=== PATIENT | female | born 1975 | race Caucasian/White ===

== ENCOUNTER 2017-12-25 23:53 | Emergency (ER) | payer OTHER ==
[~2017-12-25] VITALS: Ht 154.9 cm; Wt 96.2 kg
[2017-12-25 23:59] VITALS: Ht 154.9 cm; Wt 96.2 kg
[2017-12-26 02:58] LABS: BASOPHIL % 0.3 % (0-2); PLATELET COUNT 278 x10^3mcL (130-400)
[2017-12-26 03:00] LABS: CALCIUM 8.6 mg/dL (8.5-10.1); CARBON DIOXIDE 25.7 mmol/L (21-32); CREATININE SERUM 1.2 mg/dL (0.6-1.0); POTASSIUM SERUM 3.9 mmol/L (3.5-5.1)
[2017-12-26 03:05] LABS: BILIRUBIN TOTAL 0.6 mg/dL (0.20-1.00); TOTAL PROTEIN, SERUM 7.2 g/dL (6.4-8.2)
[2017-12-26 03:09] LABS: ALBUMIN 3.3 g/dL (3.4-5.0)
[2017-12-26 03:10] LABS: RED CELL DISTRIBUTION WIDTH 18.2 % (11.5-14.5)
[2017-12-26 04:50] VITALS: BP 121/72
[2017-12-26 05:15] LABS: UA SPECIFIC GRAVITY 1.015 (1.005-1.035); microscopic required? YES; urine erythrocyte 2+ (NEGATIVE)
== END 2017-12-26 04:50 | disposition home or self-care (01) ==
LOC: ED 23:53
PROVIDERS: Emergency Medicine
DX: K21.9 Gastro-esophageal reflux disease without esophagitis (principal)
CPT/HCPCS: C9113; J1885; J2405; J2765; J7030